=== PATIENT | female | born 1990 | race Caucasian/White ===

== ENCOUNTER 2020-10-24 11:05 | Emergency (ER) | payer MEDICAID ==
[~2020-10-24] VITALS: Ht 154.9 cm; Wt 63.5 kg
[2020-10-24 11:12] VITALS: BP 146/83
--- NOTE | 2020-10-24 11:15 | NUR ---
PT TAKEN TO CHAIR Mandy.
--- NOTE | 2020-10-24 11:20 | NUR ---
Pt presents to ED with c/o left great toe pain x2 hours. Pt states she works at [employer] and had a box fall onto her toe. Base of toe is purple with swelling. CMS intact, limited ROM d/t pain. Pt c/o 10/10 pain.
[2020-10-24] MEDS ORDERED: KETOROLAC 60 MG/2 ML VIAL IM ONE (11:25)
--- NOTE | 2020-10-24 11:44 | NUR ---
PT AMBULATED TO RADIOLOGY WITH [facility] FOR XR.
[2020-10-24 12:50] VITALS: BP 146/83
== END 2020-10-24 12:50 | disposition home or self-care (01) ==
LOC: MED 11:05
DX: S92.424A Nondisplaced fracture of distal phalanx of right great toe, initial encounter for closed fracture (principal); Z98.890 Other specified postprocedural states; W20.8XXA Other cause of strike by thrown, projected or falling object, initial encounter; Y93.89 Activity, other specified; Y92.89 Other specified places as the place of occurrence of the external cause; Y99.8 Other external cause status
CPT/HCPCS: 73660; 96372; 99283; J1885

== ENCOUNTER 2021-08-17 19:20 | Emergency (ER) | payer MEDICAID ==
[~2021-08-17] VITALS: Ht 152.4 cm; Wt 72.7 kg
[2021-08-17 19:53] VITALS: BP 124/76
--- NOTE | 2021-08-17 19:56 | NUR ---
TO LOBBY A/W BED AMBULATORY
--- NOTE | 2021-08-17 20:30 | NUR ---
SEEN AND EXAMINED BY RUI
[2021-08-17] MEDS ORDERED: BACI1PAC6 TP (20:43)
[2021-08-17 20:45] VITALS: BP 124/76
--- NOTE | 2021-08-17 20:45 | NUR ---
Patient discharged with v/s stable. Written and verbal after care instructions given and explained. Patient alert, oriented and verbalized understanding of instructions. Ambulatory with steady gait. All questions addressed prior to discharge. ID band removed. Patient advised to follow up with PMD. Rx of BACITRICIN given. Patient educated on indication of medication including possible reaction and side effects. Opportunity to ask questions provided and answered.
== END 2021-08-17 20:45 | disposition home or self-care (01) ==
LOC: MED 19:20
DX: T24.032D Burn of unspecified degree of left lower leg, subsequent encounter (principal); X58.XXXD Exposure to other specified factors, subsequent encounter
CPT/HCPCS: 99282

== ENCOUNTER 2021-11-24 20:51 | Emergency (ER) | payer MEDICAID ==
[~2021-11-24] VITALS: Ht 165.1 cm; Wt 70.4 kg
[~2021-11-24 20:51] MED LIST: BACI1PAC6 TP
[2021-11-24 21:44] VITALS: BP 127/86
--- NOTE | 2021-11-24 21:50 | NUR ---
SWABS COLLECTED AND TAKEN TO LAB. PT TO JONATHAN.
[2021-11-24 23:29] LABS: ALBUMIN 3.8 g/dL (3.4-5.0); ANION GAP 10.2 (8-16); CARBON DIOXIDE 28.6 mmol/L (21-32); CREATININE 0.8 mg/dL (0.6-1.3); POTASSIUM 3.8 mmol/L (3.5-5.1); TOTAL BILIRUBIN 0.1 mg/dL (0.0-1.0)
[2021-11-25 00:16] LABS: BASOPHILS % (AUTO) 0.2 % (0.0-2.0); EOSINOPHILS # (AUTO) 0.1 K/uL (0-0.4); EOSINOPHILS % (AUTO) 1.2 % (0.0-4.0); HEMATOCRIT 40.5 % (36-48); HEMOGLOBIN 13.2 g/dL (12.0-16.0); LYMPHOCYTES % (AUTO) 38.7 % (20.5-51.1); MEAN CORPUSCULAR HEMOGLOBIN 28 pg (27-31); MEAN CORPUSCULAR HGB CONC 33 g/dL (33-37); MEAN CORPUSCULAR VOLUME 86.3 fL (80-94); MONOCYTES # (AUTO) 0.4 K/uL (0.8-1.0); NEUTROPHILS # (AUTO) 2.7 K/uL (1.8-7.7); NEUTROPHILS % (AUTO) 51.9 % (42.2-75.2); PLATELET COUNT (AUTO) 267 K/uL (140-450); RED BLOOD CELL COUNT(AUTO) 4.69 MIL/uL (4.20-5.40); RED CELL DISTRIBUTION WIDTH 13.9 % (11.6-13.7); WHITE BLOOD COUNT (AUTO) 5.2 K/uL (4.8-10.8)
[2021-11-25] MEDS ORDERED: NITR100C7 PO (00:57)
[2021-11-25 01:20] VITALS: BP 127/86
== END 2021-11-25 01:20 | disposition home or self-care (01) ==
LOC: MED 20:51
DX: N39.0 Urinary tract infection, site not specified (principal); Z20.822 Contact with and (suspected) exposure to COVID-19
CPT/HCPCS: 36415; 80053; 81002; 81025; 85025; 87426; 99283; U0003

== ENCOUNTER 2022-01-05 21:54 | Emergency (ER) | payer MEDICAID ==
[~2022-01-05] VITALS: Ht 154.9 cm; Wt 72.3 kg
[~2022-01-05 21:54] MED LIST changes: +NITR100C7 PO
[2022-01-05 22:02] VITALS: BP 129/76
[2022-01-05] MEDS ORDERED: IBUPROFEN 600 MG TAB PO ONE (22:35)
[2022-01-05] MEDS ORDERED: IBUP-2213 PO (23:10)
[2022-01-05 23:22] VITALS: BP 129/74
--- NOTE | 2022-01-05 23:22 | NUR ---
Patient discharged with v/s stable. Written and verbal after care instructions given and explained. Patient alert, oriented and verbalized understanding of instructions. Ambulatory with steady gait. All questions addressed prior to discharge. ID band removed. Patient advised to follow up with PMD. Rx of IBUPROFEN given. Opportunity to ask questions provided and answered.
== END 2022-01-05 23:22 | disposition home or self-care (01) ==
LOC: MED 21:54
DX: S80.12XA Contusion of left lower leg, initial encounter (principal); Z79.899 Other long term (current) drug therapy; W19.XXXA Unspecified fall, initial encounter; Y93.01 Activity, walking, marching and hiking; Y92.89 Other specified places as the place of occurrence of the external cause; Y99.8 Other external cause status
CPT/HCPCS: 73590; 99283; Q0092

== ENCOUNTER 2022-05-05 08:07 | Emergency (ER) | payer MEDICAID ==
[~2022-05-05] VITALS: Ht 157.5 cm; Wt 69.4 kg
[~2022-05-05 08:07] MED LIST changes: +IBUP-2213 PO
[2022-05-05 08:13] VITALS: BP 104/72
--- NOTE | 2022-05-05 08:19 | NUR ---
PT AMBULATED TO BATHROOM WITH STEADY GAIT
[2022-05-05] MEDS ORDERED: ALUMINUM HYD/MAG/SIMETHICONE 30 ML UDC ONE (08:41)
[2022-05-05] MEDS ORDERED: DICYCLOMINE HCL LIQUID 10 MG/5 ML UDC ONE (08:41)
[2022-05-05] MEDS: DICYCLOMINE HCL LIQUID 20 MG, ALUMINUM HYD/MAG/SIMETHICONE 30 ML, LIDOCAINE VISCOUS 2% ... PO ONE ×3 (08:45)
[2022-05-05] MEDS: ONDANSETRON 4 MG/2 ML VIAL IVP ONE (08:45)
[2022-05-05] MEDS: FAMOTIDINE 20 MG/2 ML VIAL IVP ONE (08:46)
[2022-05-05] MEDS: NACL 0.9% 1,000 ML IV ONE (08:49)
[2022-05-05 09:43] LABS: APPEARANCE,URINE CLEAR (CLEAR); BILIRUBIN,URINE NEGATIVE (NEGATIVE); BLOOD, URINE TRACE-I (NEGATIVE); COLOR,URINE YELLOW (YELLOW); LEUKOCYTE ESTERASE ,URINE NEGATIVE (NEGATIVE); NITRITE, URINE NEGATIVE (NEGATIVE); UGLUCOSE NEGATIVE (NEGATIVE)
[2022-05-05 09:43] LABS: BASOPHILS % (AUTO) 0.7 % (0.0-2.0); EOSINOPHILS # (AUTO) 0.1 K/uL (0-0.4); EOSINOPHILS % (AUTO) 1.7 % (0.0-4.0); HEMATOCRIT 37.5 % (36-48); HEMOGLOBIN 12.3 g/dL (12.0-16.0); LYMPHOCYTES # (AUTO) 1.7 K/uL (2.5-16.5); LYMPHOCYTES % (AUTO) 34.3 % (20.5-51.1); MEAN CORPUSCULAR HEMOGLOBIN 29 pg (27-31); MEAN CORPUSCULAR HGB CONC 33 g/dL (33-37); MEAN CORPUSCULAR VOLUME 87.6 fL (80-94); MONOCYTES # (AUTO) 0.3 K/uL (0.8-1.0); NEUTROPHILS # (AUTO) 2.9 K/uL (1.8-7.7); NEUTROPHILS % (AUTO) 57.3 % (42.2-75.2); PLATELET COUNT (AUTO) 245 K/uL (140-450); RED BLOOD CELL COUNT(AUTO) 4.28 MIL/uL (4.20-5.40); RED CELL DISTRIBUTION WIDTH 13.6 % (11.6-13.7)
[2022-05-05 10:00] LABS: ALBUMIN 3.9 g/dL (3.4-5.0); ANION GAP 9.7 (8-16); CARBON DIOXIDE 26.3 mmol/L (21-32); CREATININE 0.8 mg/dL (0.6-1.3); TOTAL BILIRUBIN 0.2 mg/dL (0.0-1.0)
[2022-05-05 10:16] LABS: RBC,URINE 0-5 /HPF (0-5); WBC,URINE 0-5 /HPF (0-5)
[2022-05-05 10:17] LABS: OTHER CASTS, URINE None Seen /LPF (None Seen)
[2022-05-05] MEDS ORDERED: BEN10 PO (10:50)
[2022-05-05] MEDS ORDERED: FAMO-90 PO (10:50)
--- NOTE | 2022-05-05 10:58 | NUR ---
Patient appears to be resting comfortably in bed. Vital Signs within normal limits. Respirations even and unlabored. Update given to pt for plan of care.
[2022-05-05 11:13] VITALS: BP 115/75
--- NOTE | 2022-05-05 11:14 | NUR ---
Patient discharged with v/s stable. Written and verbal after care instructions given and explained. Patient alert, oriented and verbalized understanding of instructions. Ambulatory with steady gait. All questions addressed prior to discharge. ID band removed. Patient advised to follow up with PMD. Rx of PEPCID AND BENTYL given. Patient educated on indication of medication including possible reaction and side effects. Opportunity to ask questions provided and answered.
== END 2022-05-05 11:13 | disposition home or self-care (01) ==
LOC: MED 08:07
DX: K29.70 Gastritis, unspecified, without bleeding (principal); R11.0 Nausea; Z79.899 Other long term (current) drug therapy; Z98.890 Other specified postprocedural states
CPT/HCPCS: 36415; 80053; 81001; 81025; 82150; 83690; 85025; 87086; 96361; 96374; 96375; 99284; J2405; J3490; J7030

== ENCOUNTER 2022-06-28 18:06 | Emergency (ER) | payer MEDICAID ==
[~2022-06-28] VITALS: Ht 144.8 cm; Wt 68.9 kg
[~2022-06-28 18:06] MED LIST changes: +BEN10 PO; +FAMO-90 PO
[2022-06-28 18:37] VITALS: BP 123/72
[2022-06-28] MEDS ORDERED: ONDA-188 SL (20:21)
[2022-06-28] MEDS ORDERED: METO-486 PO (20:21)
[2022-06-28] MEDS ORDERED: LOPE-143 PO (20:21)
[2022-06-28 21:00] VITALS: BP 119/79
--- NOTE | 2022-06-28 21:00 | NUR ---
Patient discharged with v/s stable. Written and verbal after care instructions given and explained. Patient alert, oriented and verbalized understanding of instructions. Ambulatory with steady gait. All questions addressed prior to discharge. ID band removed. Patient advised to follow up with PMD. Rx of IMODUIM, REGLAN, ZOFRAN given. Patient educated on indication of medication including possible reaction and side effects. Opportunity to ask questions provided and answered.
== END 2022-06-28 21:00 | disposition home or self-care (01) ==
LOC: MED 18:06
DX: K52.9 Noninfective gastroenteritis and colitis, unspecified (principal)
CPT/HCPCS: 81002; 81025; 99283